=== PATIENT | male | born 1960 | race Two or more races ===

== ENCOUNTER → 2025-03-19 | Emergency (ER) | payer OTHER ==
[~2025-03-19] VITALS: Ht 185.4 cm; Wt 93.0 kg
[~2025-03-19] MED LIST: 0.9 % SODIUM CHLORIDE 500 ML IV SCH; CEFTRIAXONE SODIUM 2,000 MG VIAL IM STA; CEFTRIAXONE SODIUM 2,000 MG VIAL ONE; KETOROLAC TROMETHAMINE 30 MG VIAL ONE; KETOROLAC TROMETHAMINE 60 MG VIAL IM STA; PANTOPRAZOLE SODIUM 40 MG/VIAL VIAL IV STA
[2025-03-20 05:02] LABS: BASO % 0.5 % (0.1-1.2); EOS # 0.05 (0.04-0.54); EOS % 0.4 % (0.7-7.0); LYMPH # 1.39 (1.18-3.74); LYMPH % 12.5 % (19.3-53.1); MEAN PLATELET VOLUME 10.80 fl (9.4-12.4); MONO # 0.48 (0.24-0.82); MONO % 4.3 % (4.7-12.5); NEUT # 9.14 (1.56-6.13); NEUT % 81.9 % (34.0-71.1); RED CELL DISTRIBUTION WIDTH 12.8 % (11.6-14.4)
[2025-03-20 05:09] LABS: ERYTHROCYTE SEDIMENTATION RATE 8 mm/hr (0-20)
[2025-03-20 05:13] LABS: BUN CREA RATIO 19.0 (7.0-25.0); CREATININE SERUM 0.99 mg/dL (0.70-1.30); GFR 75.63; GLUCOSE FASTING 142.0 mg/dL (65-100); OSMOLALITY SERUM 288.0 MOSM/KG (275-295)
[2025-03-20 05:27] LABS: URINE APPEARANCE Clear; URINE BILIRRUBIN Negative (NEGATIVE); URINE BLOOD Large; URINE COLOR Yellow; URINE GLUCOSE Negative (NEGATIVE); URINE KETONE Trace (NEGATIVE); URINE LEUKOCYTE Negative; URINE NITRATE Negative; URINE PROTEIN Trace (NEGATIVE); URINE UROBILINOGEN 0.2 E.U./dl
[2025-03-20 05:31] LABS: URINE BACTERIA 14.8 uL (0.0-1933); URINE EPITHELIAL CELLS 1.9 uL (0.0-38.8); URINE RBC 252.3 uL (0.0-20.8); URINE WBC 4.4 uL (0.0-23.2)
[2025-03-20 05:36] LABS: TYPE CELLS SQUAMOUS; URINE CAST 0.28 uL (0.0-1.40)
== END | disposition home or self-care (01) ==
LOC: ER 23:13
PROVIDERS: General Practice
DX: R10.31 Right lower quadrant pain (principal); N13.39 Other hydronephrosis; N13.4 Hydroureter